=== PATIENT | male | born 1995 | race Caucasian/White ===

== ENCOUNTER 2017-02-22 11:15 | Emergency (ER) | payer OTHER ==
[~2017-02-22] VITALS: Ht 167.6 cm; Wt 77.6 kg
[~2017-02-22 11:15] MED LIST: FLO4 PO; LAC PO; LEVAQUIN500 MG PO; TOR10 PO
[2017-02-22 14:52] VITALS: BP 107/68
== END 2017-02-22 14:52 | disposition home or self-care (01) ==
LOC: ED 11:15
DX: R10.9 Unspecified abdominal pain (principal)
CPT/HCPCS: J1885; J2405; J7030